=== PATIENT | male | born 1965 | race Caucasian/White ===

== ENCOUNTER 2024-01-05 15:42 | Outpatient (CLI) | payer OTHER | END 2024-01-05 23:59 | disposition home or self-care (01) | LOC: RAD 15:42 | PROVIDERS: ATTEND Podiatrist Foot & Ankle Surgery | DX: M19.072 Primary osteoarthritis, left ankle and foot (principal); M17.12 Unilateral primary osteoarthritis, left knee; M65.872 Other synovitis and tenosynovitis, left ankle and foot; M25.472 Effusion, left ankle; M79.672 Pain in left foot; M25.572 Pain in left ankle and joints of left foot; M21.6X2 Other acquired deformities of left foot; M21.42 Flat foot [pes planus] (acquired), left foot | CPT/HCPCS: 73700 ==

== ENCOUNTER → 2024-02-02 | Outpatient (CLI) | payer OTHER, SELFPAY | END | disposition home or self-care (01) | LOC: RAD 15:29 | PROVIDERS: ATTEND Podiatrist Foot & Ankle Surgery | DX: M19.072 Primary osteoarthritis, left ankle and foot (principal); M25.472 Effusion, left ankle; M25.572 Pain in left ankle and joints of left foot; M21.6X2 Other acquired deformities of left foot; M21.42 Flat foot [pes planus] (acquired), left foot; M85.672 Other cyst of bone, left ankle and foot; M20.5X2 Other deformities of toe(s) (acquired), left foot; M25.775 Osteophyte, left foot; M79.672 Pain in left foot | CPT/HCPCS: 73700 ==